=== PATIENT | male | born 1985 | race Caucasian/White ===

== ENCOUNTER 2017-01-02 11:52 | Emergency (ER) | payer MEDICAID ==
[2017-01-02 11:58] VITALS: BP 109/92; PULSE 103; RESP 16; TEMP 97.5; O2SAT 97
--- NOTE | 2017-01-02 12:30 | EDPHY ---
H & P Stated Complaint: back pain Time Seen by Provider: 01/02/17 12:05 HPI/ROS: CHIEF COMPLAINT: Acute on chronic low back HISTORY OF PRESENT ILLNESS: 31-year-old male history of chronic back pain, history of fibromyalgia, chronic opiate dependence, drove himself to the ER, complaining of 3 days of acute on chronic low back pain. 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 He denies: Incontinence, retention, saddle anesthesia, fever, chills, chest pain, urinary abnormality, testicular pain, abdominal pain, flu-like symptoms, radiculopathy. PRIMARY CARE PROVIDER:[facility]. REVIEW OF SYSTEMS: A ten point review of systems was performed and is negative with the exception of the items mentioned in the HPI PAST MEDICAL & SURGICAL HISTORY: Fibromyalgia. Chronic back pain. SOCIAL HISTORY: denies IV drug use PHYSICAL EXAM (Prior to examination, patient consented to physical exam, hands were washed and my usual and customary physical exam procedures followed) 1) GENERAL: Well-developed, well-nourished, alert and oriented. Appears uncomfortable laying in a left lateral, position 2) HEAD: Normocephalic, atraumatic 3) HEENT: Pupils equal, round, reactive to light bilaterally. Sclera anicteric. 4) NECK: Full range of motion, no meningeal signs. 5) LUNGS: Clear auscultation bilaterally, no wheezes, no rhonchi, no retractions. 6) HEART: Regular rate and rhythm, no murmur, no heave, no gallop. 7) ABDOMEN: No guarding, no rebound, no focal tenderness, negative McBurney's, no palpable mass no pulsatile mass 8) MUSCULOSKELETAL: Moving all extremities, no focal areas of tenderness, no obvious trauma. No peripheral edema or discoloration. 9) BACK: No CVA tenderness, no midline vertebral tenderness, no fluctuance, no step-off, no obvious trauma, no visual or palpable abnormality. Patella and Achilles reflexes are intact and equal bilateral strength 5/5. No foot drop. Positive straight leg lift test. Reproducible low back pain with range of motion 10) SKIN: No rash, no petechiae. 11) Psychiatric: Patient is oriented X 3, there is no agitation. DIFFERENTIAL DIAGNOSIS: In no particular order, including but not limited to, fracture, sprain/strain, cauda equina, spinal infectious etiology. - Personal History Current Tetanus/Diphtheria Vaccine: Unsure Current Tetanus Diphtheria and Acellular Pertussis (TDAP): Unsure - Medical/Surgical History Hx Asthma: No Hx Chronic Respiratory Disease: No Hx Diabetes: No Hx Cardiac Disease: No Hx Renal Disease: No Hx Cirrhosis: No Hx Alcoholism: No Hx HIV/AIDS: No Hx Splenectomy or Spleen Trauma: No Other PMH: fibromyalgia, chronic back pain - Social History Smoking Status: Former smoker Constitutional: Initial Vital Signs Temperature (C) 36.4 C 01/02/17 11:56 Heart Rate 103 H 01/02/17 11:56 Respiratory Rate 16 01/02/17 11:56 Blood Pressure 109/92 H 01/02/17 11:56 O2 Sat (%) 97 01/02/17 11:56 O2 Delivery Mode Room Air Allergies/Adverse Reactions: No Known Allergies Allergy (Verified 10/03/14 16:39) Medical Decision Making ED Course/Re-evaluation: The emergency department manager case has spoke with this patient. She has arranged for a an appointment [facility] at 3:00 p.m. today. I recommend he keep this appointment. I informed the patient that I have a lower index of suspicion for cauda equina, epidural abscess, epidural hematoma, lumbar myositis, diskitis, as the patient is neurologically intact in the lower extremities, has patella and Achilles reflexes intact and equal bilaterally, has no neurologic deficits, no incontinence, no retention, no midline pain, no fluctuance, afebrile, no flulike symptoms. Pain may be secondary to muscular strain, may be secondary to discogenic etiology. At this point I do not identify definitive indication for emergent MRI, however patient may necessitate this on an outpatient basis. He inquired about obtaining an emergent MRI we discussed my aforementioned decision-making process in differential diagnosis. I have empathized with his ongoing pain. I have offered him: Muscle relaxant, oral steroids, lidocaine patch. He declines all these. Usual and customary low back pain precautions and instructions provided. Departure - Departure Disposition: Home, Routine, Self-Care Clinical Impression: Low back pain Qualifiers: Chronicity: acute Back pain laterality: bilateral Sciatica presence: without sciatica Qualified Code(s): M54.5 - Low back pain Condition: Good Instructions: Acute Low Back Pain (ED), Chronic Back Pain (ED) Additional Instructions: Seek medical attention if you develop new or worsening pain, if you develop bladder or bowel dysfunction, numbness around your perineum, foot drop, or any other symptoms that concern you. Referrals: Keep, [facility] appointment at 3:00 p.m. today [Other] - As per Instructions
== END 2017-01-02 13:12 | disposition home or self-care (01) ==
DX: M54.5 Low back pain (principal); Z87.891 Personal history of nicotine dependence